=== PATIENT | female | born 1990 | race Caucasian/White ===

== ENCOUNTER 2022-09-16 19:20 | Inpatient (IN) ==
[2022-09-17] MEDS ORDERED: LIDOCAINE 1% LOCAL 20 ML VIAL INFIL PRN
--- NOTE | 2022-09-17 00:08 | History & Physical Report ---
Date of Service September 17, 2022 Assessment & Plan (1) : (2) Congenital heart disease: Plan 32 yo at 40 2/7 wga admitted in early labor VSS Fetus cat 1 Labor - augment prn gbs neg likely desires epidural but had issues w/ platelets prior, will see what they are today History of Present Illness Chief Complaint: contractions Primary Care Provider: Diego Rubi, DO 32 yo at 40 2/7 wga presents w/ ctx increasing in frequency and intensity. +FM; denies LOF, VB. Initially was 3cm over 2 hrs, and planned to dc home however nst prior to dc was reassuring but NR so planned to admit and start induction. 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: G1 2018 at 41 wks G2 2019 of TIUP G3 current regular cycles denies hx STIs Allergies Allergy/AdvReac Type Severity Reaction Status Date / Time fentanyl AdvReac Patient Verified 09/11/22 14:00 request avoidance if possible Home Medications Medication Instructions Recorded Confirmed Type xlpygia-qvihopbzn-[id number] 333 mg-133 1 tab PO DAILY 05/06/20 09/11/22 History mg-5 mg tablet vitamin-ferrous fumarate 1 tab PO DAILY 05/06/20 09/11/22 History 28 mg iron-folic acid 800 mcg tablet ( Vitamins with Minerals) breast pump #1 ea 06/02/22 09/11/22 Rx ferrous sulfate 325 mg (65 mg 325 mg PO BID 09/08/22 09/11/22 History iron) tablet (Iron (ferrous sulfate)) Patient History Medical History Aortic regurgitation Moderate eccentric AR per 03/2022 echo (stable) Bicuspid aortic valve Diagnosed 5 years ago > Moderate eccentric AR per 03/2022 echo (stable), following with cardio GERD (gastroesophageal reflux disease) History of blood transfusion 2U PRBCs after twin delivery (symptomatic pp blood loss) per OB records Migraines Scoliosis CXR (09/22/13): S-shaped scoliosis of the spine with approximately 30% dextroscoliosis of the midthoracic levels CXR (08/10/18): Moderate focal dextroscoliosis centered in the midthoracic spine unchanged from prior Surgical History H/O transesophageal echocardiography (ALVARO) for monitoring History of epidural anesthesia CSE (for labor) 06/20/18: L3/4 x1 attempt, "slight scoliosis.. tolerated well.." per anesthesia record >"no major complications apparent" per anesthesia procedure note [facility] "She did not have a good anesthesia experience with first delivery at [facility] and requests an anesthesia consult with this . She had epidural at [facility] and that went well. She feels she received fentanyl in her first at [facility] and wants to know if can avoid." History of esophagogastroduodenoscopy (EGD) History of wisdom tooth extraction Family History Father Mitral valve prolapse Mother FH: thyroid disease Other No pertinent family history in first degree relatives Denies family history of Ovarian cancer Breast cancer Colorectal cancer Social History Smoking Status: Never smoker Second Hand Exposure: No; Do You Dip or Chew Tobacco: No; Hx Alcohol Use: No Hx Substance Use: No Preferred Language: Italian Communication Ability: Effective Loom Setter Required: No Beliefs That Will Affect Care: None marital status: marital status details: Kirit Hutchison (29) [phone] Current Living Situation: Spouse and Family Current Living Situation Comment: - Kirit and 3 children current occupational status: unemployed 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 Other Information That Helps Us Care for You: No Feels Safe at Home: Yes Safety Concerns: Feels Safe At This Time Assistive Devices: None Physical Exam Genitourinary: Manual OB Exam: + cervical dilation 4 cm, + cervical effacement 70% and + station -2 OB Exam Monitor Tracing: + external FHT monitor used, + external uterine monitor used and + category I Results & Data Vital Signs (Past 12 Hours) Vital Signs Temp Pulse Resp BP 09/16/22 19:33 98.1 F 18 09/16/22 19:32 103 H 118/66 Laboratory Results Initial OB Labs 02/09/22 Blood Type & RH A Positive Antibody Screen negative HCT/HGB 37.1/12.8 Platelets 176 Hep C IgG 13yrs+ Old negative Pap Test Chlamydia negative Gonorrhea negative Rubella positive RPR non-reactive Urine Culture/Screen no significant growth HBsAg HIV negative MCV Ultrasound declined genetic/cf/sma--akh gbs negative. Diagnostic Findings 08/24 EFW 77%, post fundal plac Coding Level of Care Code None Diagnoses Z34.90 Congenital heart disease Q24.9
[2022-09-17 00:55] LABS: Hematocrit (blood only) 34.3 % (37.0-47.0); Hemoglobin 11.7 g/dl (12.0-16.0); Mean Corpuscular Hemoglobin 29.2 pg (25.0-34.0); Mean Corpuscular Hgb Conc 34.1 g/dL (32.0-36.0); Mean Corpuscular Volume 85.5 fL (80.0-100.0); Mean Platelet Volume 11.5 fL (9.4-12.4); Platelet Count 144 K/uL (130-400); RDW Coefficient of Variation 14.5 % (11.5-14.5); RDW Standard Deviation 44.5 fL (36.4-46.3); Red Blood Count 4.01 M/uL (4.20-5.40); White Blood Count 10.73 K/ul (4.8-10.8)
[2022-09-17] MEDS: LACTATED RINGER'S 1,000 ML IV PRN ×2 (01:48→02:46)
[2022-09-17] MEDS ORDERED: BUPIVACAINE 0.25% PF 30 ML VIAL ONE ×2 (01:53→05:12)
[2022-09-17] MEDS ORDERED: fentaNYL citrate PF 100 MCG/2 ML VIAL ONE ×2 (01:53→05:12)
[2022-09-17] MEDS ORDERED: ePHEDrine sulfate 50 MG/ML AMP ONE (01:53)
[2022-09-17] MEDS ORDERED: LIDOCAINE 2%/EPINEPHRINE 1:200,000 20 ML PF ONE ×2 (01:53→05:12)
[2022-09-17] MEDS ORDERED: fentaNYL 2MCG/ML ROPIVACAINE 1.25MG/ML 100 ML BAG EPI ONE (01:53)
[2022-09-17] MEDS ORDERED: SODIUM CHLORIDE 0.9% PF INJ 10 ML VIAL ONE ×2 (01:53→05:12)
[2022-09-17] MEDS ORDERED: ePHEDrine sulfate 50 MG/ML AMP IV PRN (02:20)
[2022-09-17] MEDS ORDERED: NALBUPHINE HCL INJ 10 MG/ML AMP IV PRN (02:20)
[2022-09-17] MEDS ORDERED: fentaNYL 2MCG/ML ROPIVACAINE 1.25MG/ML 100 ML BAG EPI PRN (02:20)
[2022-09-17] MEDS ORDERED: NALOXONE HCL 0.4 MG/1 ML VIAL/CARP IV PRN (02:20)
[2022-09-17] MEDS ORDERED: NALOXONE HCL 1 MG in SODIUM CHLORIDE 0.9% 1000ML 1,000 ML IV PRN (02:20)
[2022-09-17] MEDS ORDERED: diphenhydrAMINE 50 MG/ML VIAL IV PRN (02:20)
--- NOTE | 2022-09-17 02:20 | Anesthesiology Consultation ---
Date of Service September 17, 2022 Assessment & Plan ASA ASA2 Proposed Anesthesia Anesthesia Type: Labor Epidural Risk / Benefits Reviewed With: PT / POA / Parent / Guardian, Accepts Plan and Informed Consent Obtained History Height/Weight Height: 5 ft 7 in Weight: 73.936 kg Allergies Allergy/AdvReac Type Severity Reaction Status Date / Time fentanyl AdvReac Patient Verified 09/11/22 14:00 request avoidance if possible Medications Home Medications Medication Instructions Recorded Confirmed Last Taken bbfraaf-ytnpczfap-qxwj 333 mg-133 1 tab PO DAILY 05/06/20 09/11/22 09/08/22 mg-5 mg tablet vitamin-ferrous fumarate 1 tab PO DAILY 05/06/20 09/11/22 09/08/22 28 mg iron-folic acid 800 mcg tablet ( Vitamins with Minerals) breast pump #1 ea 06/02/22 09/11/22 Unknown ferrous sulfate 325 mg (65 mg 325 mg PO BID 09/08/22 09/11/22 Unknown iron) tablet (Iron (ferrous sulfate)) Active Medications Generic Name Dose Route Start Last Admin Trade Name Freq PRN Reason Stop Dose Admin Lactated Ringer's 1,000 mls @ 125 mls/hr 09/17/22 00:00 09/17/22 02:46 Lr IV 09/19/22 00:00 125 mls/hr .Q8H PRN Administration L&D Protocol Protocol Past Medical History Medical History Aortic regurgitation Moderate eccentric AR per 03/2022 echo (stable) Bicuspid aortic valve Diagnosed 5 years ago > Moderate eccentric AR per 03/2022 echo (stable), following with cardio GERD (gastroesophageal reflux disease) History of blood transfusion 2U PRBCs after twin delivery (symptomatic pp blood loss) per OB records Migraines Scoliosis CXR (09/22/13): S-shaped scoliosis of the spine with approximately 30% dextroscoliosis of the midthoracic levels CXR (08/10/18): Moderate focal dextroscoliosis centered in the midthoracic spine unchanged from prior Exercise / Class Metabolic Activity II 4-5 Yardwork/Stairs/Walk up hill Past Family History Family History Father Mitral valve prolapse Mother FH: thyroid disease Other No pertinent family history in first degree relatives Denies family history of Ovarian cancer Breast cancer Colorectal cancer Past Surgical History Surgical History H/O transesophageal echocardiography (ALVARO) for monitoring History of epidural anesthesia CSE (for labor) 06/20/18: L3/4 x1 attempt, "slight scoliosis.. tolerated well.." per anesthesia record >"no major complications apparent" per anesthes ia procedure note [facility] OB visit (06/25/22): "She did not have a good anesthesia experience with first delivery at [facility] and requests an anesthesia consult with this . She had epidural at [facility] [place] and that went well. She feels she received fentanyl in her first at [facility] and wants to know if can avoid." History of esophagogastroduodenoscopy (EGD) History of wisdom tooth extraction Past Anesthesia History No Hx of Anesthesia Complications and No Family Hx of Anesthesia Complications History of PONV No Hx of PONV and No Hx of Motion Sickness Social History Smoking Status: Never smoker Do You Dip or Chew Tobacco: No Hx Alcohol Use: No Hx Substance Use: No substance use type: does not use Review of Systems denies fever/cough/ colds/ chest pain/ SOB/ BOB denies BOB Physical Exam Vital Signs Last Vital Signs Temp 36.7 C 09/17/22 00:41 Pulse 83 09/17/22 02:55 Resp 18 09/17/22 02:00 BP 112/63 09/17/22 02:55 Pulse Ox 98 09/17/22 02:51 ENMT Mouth: no TMJ abnormality and no dentition abnormality Thyromental Distance: > or= 3.5 Finger Breadths Mallampati Class: II Neck neck extension not limited Respiratory normal respiratory effort; no respiratory distress Auscultation: lungs clear to auscultation bilaterally Cardiovascular Rate/Rhythm: regular rate and regular rhythm Neurologic moves all extremities Psychiatric Orientation: alert and oriented x 3 Testing Laboratory Results 09/17/22 00:36 Blood Type A Positive 09/17/22 00:36 Antibody Screen NEGATIVE 09/17/22 00:36
[2022-09-17] MEDS: ONDANSETRON INJ 2 MG/ML 2 ML VIAL IV PRN ×2 (03:09→08:58)
--- NOTE | 2022-09-17 05:53 | Communication Note ---
Date of Service: September 17, 2022 asked to reevaluate the patient. Patient is completely numb on her left lower side, but has complete sensory on her right. Catheter is already at 4cm in the epidural space, so do not want to pull back further. Best course of action is to replace the epidural at a different level. Pt agreeable. Time out done. old epidural removed with tip intact. landmark for l2-l3 identified. sterile prep/drape/mask/gloves. 1% lidocaine infiltrated. 17 gauge touey needle advanced to CHARLI with air@5cm. easy catheter thread to 10cm at skin. test dose with 3cc of 2% lido with epi. negative IV/IT. catheter secured. bolus of 3 cc of .5% bupivicaine given. pt reports numbness now in her right leg. pt more comfortable.
--- NOTE | 2022-09-17 09:15 | Delivery Summary ---
Vaginal Delivery Summary Date of Service September 17, 2022 Vaginal Delivery Summary and 1st Degree LAC Vaginal Delivery Summary: Pre-delivery diagnoses: 32yo (h/o twins), spontaneous labor Post-delivery diagnoses: same Procedure: spontaneous vaginal delivery, repair of 1st degree perineal laceration Surgeon: Gabriella Lau DO Complications: none Findings: Viable female . Apgars: 8/9. Weight pending, please see nursery records. Estimated blood loss: 300ml Description of delivery: The patient progressed to complete with epidural anesthesia. Bulging amniotic membranes ruptured digitally. She then spontaneously vaginally delivered a viable from the cephalic presentation. The head delivered in MICAELA position. The anterior shoulder delivered, followed by the posterior shoulder, followed by the body. No nuchal. The baby was placed on mother's abdomen and a spontaneous cry was heard. Delayed cord clamping was employed, and the cord was doubly clamped and cut. Cord blood was obtained. The placenta was delivered spontaneously intact with a 3-vessel cord. The uterus and vagina were swept of clots and debris. IV pitocin was given. The uterus became firm. The cervix, vagina, and perineum were inspected and a 1st degree perineal laceration was noted, repaired with 3-0 Vicryl in standard fashion. Excellent hemostasis was observed. The mother and baby are recovering in stable and good condition in the room. Sponge, needle and instrument counts were correct x 2. Gabriella Lau DO [facility] Vaginal Delivery Charge Delivery Type Details: and 1st Degree LAC
[2022-09-17] MEDS ORDERED: OXYTOCIN 30 UNITS/500 ML BAG IV PRN ×2 (09:35)
[2022-09-17] MEDS ORDERED: DIPHTHERIA/TETANUS/PERTUSSIS 0.5mL SYR/VIAL (Age 7+yrs) IM ONE (09:35)
[2022-09-17] MEDS ORDERED: bisacodyL 10 MG SUPP PR PRN (09:35)
[2022-09-17] MEDS ORDERED: ACETAMINOPHEN 325 MG TAB PO PRN (09:35)
[2022-09-17] MEDS ORDERED: HYDROCORTISONE ACETATE 25 MG SUPP PR PRN (09:35)
[2022-09-17] MEDS ORDERED: BENZOCAINE 20% AER SPR 82.5 GM CAN EXT PRN (09:35)
--- NOTE | 2022-09-17 10:16 | Anesthesia Procedure Note ---
Date of Service September 17, 2022 Anesthesia Post Epidural Note Vital Signs Vital Signs: Temp Pulse Resp BP Pulse Ox 98.2 F 74 18 111/63 100 09/17/22 07:10 09/17/22 10:02 09/17/22 08:49 09/17/22 10:02 09/17/22 08:48 Notes Mental Status: alert / awake / arousable and participated in evaluation Nausea / Vomiting: adequately controlled Pain: adequately controlled Airway Patency, RR, SpO2: stable & adequate BP & HR: stable & adequate Hydration State: stable & adequate Neuraxial Anesthesia: was administered and sensory block is resolving Anesthetic Complications: no major complications apparent and Pt Satisfied with anesthetic care Epidural: Removed without complications and With tip intact
[2022-09-17] MEDS: IBUPROFEN 600 MG TAB PO PRN ×2 (12:08→20:30)
[2022-09-17] MEDS: DOCUSATE SODIUM 100 MG CAP PO SCH (20:31)
[2022-09-18] MEDS: IBUPROFEN 600 MG TAB PO PRN ×2 (00:21→09:26)
[2022-09-18 06:02] LABS: Hematocrit (blood only) 35.3 % (37.0-47.0); Hemoglobin 11.7 g/dl (12.0-16.0); Mean Corpuscular Hemoglobin 29.4 pg (25.0-34.0); Mean Corpuscular Hgb Conc 33.1 g/dL (32.0-36.0); Mean Corpuscular Volume 88.7 fL (80.0-100.0); Mean Platelet Volume 11.3 fL (9.4-12.4); Platelet Count 131 K/uL (130-400); RDW Coefficient of Variation 14.6 % (11.5-14.5); Red Blood Count 3.98 M/uL (4.20-5.40); White Blood Count 9.46 K/ul (4.8-10.8)
[2022-09-18 06:17] LABS: Albumin Globulin Ratio 1.1 (0.9-2); Albumin Level 2.9 gm/dl (3.4-5.0); BUN Creatinine Ratio 16.7 (10-20); Bilirubin,Total 0.5 mg/dl (0.2-1.0); Calcium 8.1 mg/dl (8.6-10.3); Creatinine Clr Calc Pharmacy 130.9 ml/min; Est GFR (African American) 137.4 ml/min; Est GFR (Non-African American) 118.5 ml/min; Globulin 2.6 gm/dl (2.5-4.0); Total Protein 5.5 gm/dl (6.0-8.3)
--- NOTE | 2022-09-18 06:24 | Obstetrical Progress Note ---
Date of Service September 18, 2022 Assessment & Plan (1) : (2) Vaginal bleeding during : (3) with 39 completed weeks gestation: Plan Jeanne is a 32 y/o female who is PPD #1 following delivery at 40w2d. -Meeting all milestones -Vital signs reviewed and WNL. Repeat CBC and CMP this morning reassuring. -A+/GBS negative/Rubella immune -Follow up in 6 weeks for appointment -Discussed with patient plan for discharge- she would like to see how the day goes but may want to discharge later today Admission and Anticipated Discharge Date Admission Date: September 17, 2022 Supervising Physician Co-Signing Physician Notes Resident Physician Supervision Note: I interviewed and examined the patient. Discussed with Dr. De La Torre and agree with findings and plan as documented in the note. Any exceptions or clarifications are listed here: doing well. reassured by labs. desires DC home, instructions reviewed. Documented By: Gabriella Lau, DO Subjective Jeanne is a 32 y/o female who is PPD #1 following delivery at 40w2d. She has a history of aortic regurgitation and bicuspid aortic valve. She had a history of low platelets in prior delivery, platelets have been stable during this . She reports feeling well overall this morning. Notes some abdominal cramping but pain well managed on analgesics. Voiding without issue. Tolerating meals overnight and able to ambulate some. Has some persistent lochia with some improvement this morning. Currently breast feeding. Review of Systems Constitutional: no fever, no chills and no sweats Respiratory: no cough, no dyspnea and no wheezing Cardiovascular: no chest pain, no palpitations and no calf pain Genitourinary: no dysuria Neurologic: no headache(s) Physical Exam Constitutional: WD/WN, vitals as above no acute distress Respiratory: no respiratory distress Auscultation: lungs clear to auscultation bilaterally; no rales, no rhonchi and no wheezes Cardiovascular: RRR, no murmur, no edema Extremities: no calf tenderness and no edema Negative Paola's sign bilaterally. Gastrointestinal (Abdomen): Inspection/Auscultation: normal bowel sounds Genitourinary: Uterine fundus firm, palpable below the umbilicus. Results & Data Vital Signs (Past 12 Hours) Vital Signs Temp Pulse Resp BP Pulse Ox O2 Del Method 09/18/22 04:20 36.6 C 60 18 104/66 98 Room Air 09/18/22 00:20 36.8 C 54 L 18 111/62 98 Room Air 09/17/22 20:05 36.7 C 65 18 113/65 98 Room Air Resident Activity Tracking Resident Involvement: Resident Care Provided Care Provided: OB Delivery
[2022-09-18] MEDS ORDERED: PRENATAL VITAMIN 1 TAB PO SCH (08:00)
[2022-09-18] MEDS: DOCUSATE SODIUM 100 MG CAP PO SCH (09:26)
[2022-09-18] MEDS ORDERED: bisacodyL 5 MG TABEC PO SCH (20:00)
== END 2022-09-18 14:10 | disposition home or self-care (01) | DRG 806 ==
LOC: OPB 19:20 → 4S1 19:21 → 4E2 09-17 11:30